=== PATIENT | female | born 1980 | race Caucasian/White ===

== ENCOUNTER 2024-07-25 15:01 | Inpatient (IN) | payer SELFPAY ==
[~2024-07-25] VITALS: Ht 165.1 cm; Wt 64.4 kg
[2024-07-25 15:03] VITALS: O2SAT 99
[2024-07-25] MEDS ORDERED: FAMOTIDINE 20MG/2ML VIAL IV STA (15:24)
[2024-07-25 15:56] LABS: CHLORIDE 93 mEq/L (98-107); POTASSIUM 3.1 mEq/L (3.5-5.1); SODIUM 136 mEq/L (136-145)
[2024-07-25 15:57] LABS: CALCIUM 8.7 mg/dL (8.7-10.4); CARBON DIOXIDE 22 mEq/L (21-32)
[2024-07-25 16:02] LABS: CREATININE 0.5 mg/dL (0.6-1.0); GLUCOSE 109 mg/dL (70-105); UREA NITROGEN BLOOD 11 mg/dL (9-23)
[2024-07-25 16:04] LABS: ALANINE AMINOTRANSFERASE 80 IU/L (10-49); ALBUMIN 4.6 g/dL (3.2-4.8); ASPARTATE AMINOTRANSFERASE 113 IU/L (<34); BILIRUBIN DIRECT 0.2 mg/dL (<=3.0); BILIRUBIN TOTAL 0.8 mg/dL (0.1-1.0); PROTEIN TOTAL 7.7 g/dL (6.0-8.3)
[2024-07-25 16:06] LABS: BASOPHILS % 0.2 % (0.0-2.0); HEMATOCRIT. 41.6 % (36.0-48.0); HEMOGLOBIN. 14.4 g/dL (12.0-16.0); MEAN CORPUSCULAR HEMOGLOBIN 31.2 pg (28.0-32.0); MEAN CORPUSCULAR HGB CONC 34.5 g/dL (31.0-37.0); MEAN CORPUSCULAR VOLUME 90.2 fL (81.0-99.0); MEAN PLATELET VOLUME 8.6 fl (7.4-10.4); MONOCYTES % 5.3 % (2.0-8.0); NEUTROPHILS % 62.5 % (40.0-76.0); PLATELET 329 x1000/uL (130-400); RED BLOOD CELL COUNT 4.61 mill/uL (4.2-5.4); RED CELL DISTRIBUTION WIDTH 13.7 % (11.6-14.6); WHITE BLOOD COUNT 5.5 x1000/uL (4.5-11.0)
[2024-07-25 16:08] LABS: HCG SCREEN NEGATIVE
[2024-07-25] MEDS: SODIUM CHLORIDE 0.9% 1,000 ML IV ONE (17:04)
[2024-07-25] MEDS: ONDANSETRON HCL 4MG/2ML INJ IV STA (17:06)
[2024-07-25] MEDS: POTASSIUM CHLORIDE 20MEQ TABLET SR PO ONE (17:07)
[2024-07-25] MEDS: METOCLOPRAMIDE HCL 10MG/2ML VIAL IV ONE (17:57)
[2024-07-25] MEDS ORDERED: FAMOTIDINE 20MG/2ML VIAL IV NR (18:30)
[2024-07-25] MEDS ORDERED: CLONIDINE 0.1MG TABLET PO PRN (20:00)
[2024-07-25] MEDS ORDERED: IPRATROPIUM/ALBUTEROL 0.5-3(2.5)MG/3ML NEB HHN PRN (20:00)
[2024-07-25] MEDS ORDERED: ACETAMINOPHEN 325MG TABLET PO PRN (20:00)
[2024-07-25] MEDS ORDERED: ONDANSETRON HCL 4MG/2ML INJ IV PRN (20:00)
[2024-07-25] MEDS ORDERED: DOCUSATE SODIUM 100MG CAPSULE PO PRN (20:00)
[2024-07-25] MEDS ORDERED: CEFTRIAXONE 1GM/50ML 50 ML IV NR (20:15)
[2024-07-25 21:49] LABS: ETHANOL BLOOD 171 mg/dL (<10)
[2024-07-25 21:50] LABS: PHOSPHORUS 2.5 mg/dL (2.5-4.9)
[2024-07-25 21:58] LABS: LACTIC ACID 4.7 mmol/L (0.4-2.0)
[2024-07-25] MEDS: FOLIC ACID 1 MG, THIAMINE HCL 100 MG, MVI, ADULT NO.1 10 ML in DEXTROSE 5% WATER 1,000 ML IV NR (22:20)
[2024-07-25] MEDS: ACETAMINOPHEN 325MG TABLET PO PRN (22:23)
[2024-07-25 23:16] LABS: CREATINE KINASE MB FRACTION 2.3 ng/mL (0.5-3.6); TROPONIN I HIGH SENSITIVITY 23 ng/L (3.0-34)
[2024-07-25 23:18] LABS: CREATINE KINASE 148 IU/L (34-145)
[2024-07-26 00:45] VITALS: BP 135/78; PULSE 122; RESP 20; TEMP 37.05852; O2SAT 98
[2024-07-26 02:32] VITALS: BP 135/70; PULSE 122; RESP 20
[2024-07-26] MEDS: KETOROLAC 15MG/ML VIAL IV PRN (02:32)
[2024-07-26] MEDS: LORAZEPAM 2MG/ML INJ IV PRN (02:33)
[2024-07-26] MEDS: FAMOTIDINE 20MG/2ML VIAL IV NR (02:43)
[2024-07-26] MEDS ORDERED: ENOXAPARIN 40MG/0.4ML SYR SUBCUT SCH (09:00)
[2024-07-26] MEDS ORDERED: PANTOPRAZOLE SODIUM 40 MG/VIAL IV SCH (09:00)
[2024-07-26] MEDS ORDERED: DEXT 5%/0.9% NACL 1,000 ML IV SCH (09:00)
[2024-07-26 09:22] LABS: BASOPHILS % 0.4 % (0.0-2.0); EOSINOPHILS % 0.1 % (0.0-5.0); HEMATOCRIT. 33.7 % (36.0-48.0); HEMOGLOBIN. 11.2 g/dL (12.0-16.0); LYMPHOCYTES % 38.6 % (20.0-50.0); MEAN CORPUSCULAR HEMOGLOBIN 30.6 pg (28.0-32.0); MEAN CORPUSCULAR HGB CONC 33.3 g/dL (31.0-37.0); MEAN CORPUSCULAR VOLUME 92.1 fL (81.0-99.0); MEAN PLATELET VOLUME 9.1 fl (7.4-10.4); MONOCYTES % 7.4 % (2.0-8.0); NEUTROPHILS % 53.5 % (40.0-76.0); PLATELET 225 x1000/uL (130-400); RED BLOOD CELL COUNT 3.66 mill/uL (4.2-5.4); WHITE BLOOD COUNT 6.7 x1000/uL (4.5-11.0)
[2024-07-26 09:29] LABS: CARBON DIOXIDE 23 mEq/L (21-32); CHLORIDE 97 mEq/L (98-107); POTASSIUM 3.2 mEq/L (3.5-5.1); SODIUM 134 mEq/L (136-145)
[2024-07-26 09:30] LABS: CALCIUM 8.5 mg/dL (8.7-10.4)
[2024-07-26 09:32] LABS: CREATINE KINASE MB FRACTION 1.8 ng/mL (0.5-3.6)
[2024-07-26 09:34] LABS: CREATININE 0.6 mg/dL (0.6-1.0); GLUCOSE 77 mg/dL (70-105)
[2024-07-26 09:35] LABS: TRIGLYCERIDE 161 mg/dL (0-150); UREA NITROGEN BLOOD 11 mg/dL (9-23)
[2024-07-26 09:36] LABS: LDL CHOLESTEROL 101 mg/dL (5-100)
[2024-07-26 09:37] LABS: CHOLESTEROL 183 mg/dL (<200); HDL CHOLESTEROL 56 mg/dL (>65); T4 FREE 0.87 ng/dL (0.89-1.76); THYROID STIMULATING HORMONE 3.93 uIU/mL (0.55-4.78)
== END 2024-07-26 12:13 | disposition left against medical advice (07) | DRG 251 ==
LOC: ER 15:01 → EDBEDREQ 17:18 → 5WST 18:01 → EDBEDREQ 18:03
PROVIDERS: ADMIT Internal Medicine; ATTEND Internal Medicine
DX: R10.84 Generalized abdominal pain (principal); F10.129 Alcohol abuse with intoxication, unspecified; Z53.29 Procedure and treatment not carried out because of patient's decision for other reasons; Z63.4 Disappearance and death of family member; Z79.899 Other long term (current) drug therapy; Y90.6 Blood alcohol level of 120-199 mg/100 ml
CPT/HCPCS: 36415; 80048; 80061; 80076; 80320; 82550; 82553; 83605; 83735; 84100; 84145; 84439; 84443; 84484; 84703; 85025; 93005; 93970; 99285; J1885; J2060; J2405; J2765; J3411; J3490; J7030; J7070; G0480